=== PATIENT | female | born 1980 | race African-American/Black ===

== ENCOUNTER 2020-09-10 09:56 | Day surgery (SDC) | payer OTHER ==
[~2020-09-10 09:56] MED LIST: PROPOFOL INJ 200 MG/20 ML VIAL IV ONE
[2020-09-10 12:51] VITALS: BP 114/67
--- NOTE | 2020-09-10 13:51 | Operative Report ---
Operative Report DATE OF SURGERY: 09/10/20 Operative Report: The risks, benefits and alternatives are discussed patient is takento to the OR propofol sedation is provided the scope is inserted into the patient's rectum the scope is advanced to the cecum prep is good the various segments of the colon are evaluated retroflexion is performed PREOPERATIVE DIAGNOSIS: rectal bleeding POSTOPERATIVE DIAGNOSIS: Right side colon inflammation. biopsy is obtained. internal hemorrhoids OPERATION: colonoscopy with biopsy SURGEON: JEAN-CLAUDE GALEANA ANESTHESIA: LMAC TISSUE REMOVED OR ALTERED: as noted above COMPLICATIONS: none ESTIMATED BLOOD LOSS: none INTRAOPERATIVE FINDINGS: as noted above PROCEDURE: patient tolerated her procedure well no post procedure complications are noted discharge date : 09/10/2020 discharge activity: regular discharge diet: regular follow up in 2-3 weeks patient is instructed to call the office or go to ED if having any problems follow up on pathology
== END 2020-09-10 13:04 | disposition home or self-care (01) ==
LOC: OROUT 09:56
PROVIDERS: ATTEND Internal Medicine Gastroenterology
DX: K57.30 Diverticulosis of large intestine without perforation or abscess without bleeding (principal); K64.8 Other hemorrhoids; Z79.899 Other long term (current) drug therapy; Z90.49 Acquired absence of other specified parts of digestive tract; Z20.822 Contact with and (suspected) exposure to COVID-19; F17.200 Nicotine dependence, unspecified, uncomplicated; F41.1 Generalized anxiety disorder
CPT/HCPCS: 45380; 88305 ×2; J2704; 811